=== PATIENT | female | born 1965 | race Caucasian/White ===

== ENCOUNTER 2022-11-07 21:18 | Emergency (ER) | payer OTHER ==
[2022-11-07] VITALS (7 sets, daily range): BP systolic 128–162; BP diastolic 75–131
[~2022-11-07] VITALS: Ht 165.1 cm; Wt 114.0 kg
[~2022-11-07 21:18] MED LIST: BACTRIM DS1 TAB PO; LISINOPRIL10 MG PO
[2022-11-07] MEDS ORDERED: ATORVASTATIN CA20 MG PO (21:36)
[2022-11-07] MEDS ORDERED: LISINOPRIL20 M1 PO (21:36)
[2022-11-07] MEDS ORDERED: ALENDRONATE SOD70 MG PO (21:37)
[2022-11-07] MEDS ORDERED: TRAZODONE50 MG PO (21:37)
[2022-11-07] MEDS ORDERED: BREZTRI AEROSPH1 AER (21:38)
[2022-11-07 22:21] LABS: BASO% 0.3 % (0-3); EOS% 1.7 % (0-8); HEMATOCRIT 42.9 % (37.0-47.0); HEMOGLOBIN 13.7 g/dl (12.0-16.0); IMMATURE GRANULOCYTES 0.2 % (0.0-5.0); LYMPH% 13.9 % (15-41); MEAN CELL VOLUME 95.3 fL CALC (80.0-100.0); MEAN CORPUSCULAR HGB 30.4 pG CALC (26.0-32.0); MEAN CORPUSCULAR HGB CONC 31.9 g/dL CAL (32.0-36.0); NEUT# 7.85 thou/uL (2.00-7.15); NEUT% 77.9 % (42-76); RED BLOOD COUNT 4.5 mill/uL (4.20-5.60); RED CELL DISTRI WIDTH 12.7 % (11.5-15.5)
[2022-11-07 22:37] LABS: ALBUMIN 4.2 g/dL (3.2-5.0); ALKALINE PHOSPHATASE 106 u/l (38-126); BILIRUBIN, TOTAL 0.5 mg/dL (0.02-1.3); BUN 14 mg/dL (7-17); BUN/CREATININE RATIO 15 (12-20 (CALC)); CHLORIDE 104 mmol/l (95-108); GFR FOR AFR.AMER. > 60 ML/MIN (>=60 (CALC)); GFR OTHER RACES 57 ML/MIN (>=60 (CALC)); LIPASE 49 u/l (23-300); POTASSIUM 4.3 mmol/l (3.5-5.1); SODIUM 141 mmol/l (137-146); TOTAL PROTEIN 7.4 g/dL (6.3-8.2)
[2022-11-07 22:39] LABS: ANION GAP 13 (6-22 (CALC)); CARBON DIOXIDE 28 mmol/l (22-30); SGOT/AST 42 u/l (14-36)
[2022-11-07 23:40] LABS: URINE BILIRUBIN - DIPSTICK NEGATIVE (NEGATIVE); URINE COLOR YELLOW; URINE GLUCOSE - DIPSTICK NEGATIVE (NEGATIVE); URINE KETONE Negative (NEGATIVE); URINE PH 5.5 (4.5-8.0); URINE SPECIFIC GRAVITY 1.025
[2022-11-07 23:41] LABS: URINE BLOOD DIPSTICK MODERATE (NEGATIVE); URINE LEUK ESTERASE NEGATIVE (NEGATIVE); URINE NITRITE - DIPSTICK NEGATIVE (Negative); URINE PROTEIN - DIPSTICK NEGATIVE (NEG-TRACE); URINE UROBILINOGEN - DIPSTICK 0.2 E.U./dL (0.2)
[2022-11-07] MEDS ORDERED: PROMETHAZINE HY25 M1 PO (23:49)
[2022-11-07] MEDS ORDERED: TRAMADOL HCL50 MG PO (23:49)
[2022-11-07 23:55] LABS: URINE BACTERIA FEW hpf; URINE MUCUS FEW hpf (NONE-FEW); URINE SQUAMOUS EPITHELIAL CELL FEW EPI/hpf (0-FEW)
[2022-11-08] VITALS: BP 142/100
[2022-11-08 00:03] VITALS: BP 140/92
== END 2022-11-08 00:17 | disposition home or self-care (01) | DRG 446 ==
LOC: ED 21:18
PROVIDERS: Family Medicine
DX: K80.20 Calculus of gallbladder without cholecystitis without obstruction (principal); I10 Essential (primary) hypertension; J44.9 Chronic obstructive pulmonary disease, unspecified; Z87.442 Personal history of urinary calculi; Z87.891 Personal history of nicotine dependence
CPT/HCPCS: Q9967; S0164

== ENCOUNTER 2023-01-09 07:19 | Day surgery (SDC) | payer OTHER ==
[~2023-01-09] VITALS: Ht 152.4 cm; Wt 86.2 kg
[~2023-01-09 07:19] MED LIST changes: +ALENDRONATE SOD70 MG PO; +ATORVASTATIN CA20 MG PO; +BREZTRI AEROSPH1 AER; +LISINOPRIL20 M1 PO; +MULTI VITAMIN1 TAB PO; +PROMETHAZINE HY25 M1 PO; +TRAMADOL HCL50 MG PO; +TRAZODONE50 MG PO; +VITAMIN C + PO
[2023-01-09] MEDS ORDERED: TRAMADOL HCL50 MG PO (11:08)
[2023-01-09 12:27] VITALS: BP 103/64
== END 2023-01-09 12:16 | disposition home or self-care (01) | DRG 419 ==
LOC: ORM 07:19
PROVIDERS: ATTEND Surgery
PROC: 0FT44ZZ Resection of Gallbladder, Percutaneous Endoscopic Approach (ICD-10-PCS; principal; 2023-01-09)
DX: K80.10 Calculus of gallbladder with chronic cholecystitis without obstruction (principal); I10 Essential (primary) hypertension
CPT/HCPCS: J0131; J0690; J1100; J1610; Q9966